=== PATIENT | male | born 1980 | race Caucasian/White ===

== ENCOUNTER 2021-08-24 06:26 | Emergency (ER) | payer OTHER ==
[~2021-08-24] VITALS: Ht 177.8 cm; Wt 88.6 kg
[2021-08-24] MEDS ORDERED: FLUORESCEIN OPHTH 1 MG STRIP OS ONE (07:15)
[2021-08-24] MEDS ORDERED: PROPARACAINE 0.5% OPHTH SOL 15ML OS ONE (07:15)
[2021-08-24] MEDS ORDERED: CYCLOPENTOLATE 1% OPHTH SOLN 2 ML BTL OS ONE (08:35)
[2021-08-24] MEDS ORDERED: POLYTRIM OPTH DROPS 10ML OS ONE (08:35)
[2021-08-24] MEDS ORDERED: CYCL1SOL17 OS (08:37)
[2021-08-24] MEDS ORDERED: POLYSOL OP (08:37)
[2021-08-24] MEDS ORDERED: KETO10TAB PO (08:37)
[2021-08-24 08:56] VITALS: BP 125/80
== END 2021-08-24 09:10 | disposition home or self-care (01) ==
LOC: M ED 06:26
DX: S05.02XA Injury of conjunctiva and corneal abrasion without foreign body, left eye, initial encounter (principal); W22.8XXA Striking against or struck by other objects, initial encounter; Y99.1 Military activity